=== PATIENT | male | born 1955 | race African-American/Black ===

== ENCOUNTER → 2018-08-05 | Outpatient (CLI) | payer OTHER ==
[~2018-08-05] MED LIST: ADULT LOW DOSE81 MG PO; AVELOX400 MG PO; CABERGOLINE 0.0.5 M1 PO; FISHOIL; LISINOPRIL20 MG PO; PRILOSEC 20 MG20 MG PO; SIMVASTATIN20 MG PO; TESTIM5 GM TD; VITAMIN B-12250 MCG PO
== END ==
LOC: RAD 10:10 → SPEECH 14:38 → RAD 15:14
DX: R13.12 Dysphagia, oropharyngeal phase (principal); R13.19 Other dysphagia; K21.9 Gastro-esophageal reflux disease without esophagitis; J39.2 Other diseases of pharynx; R09.89 Other specified symptoms and signs involving the circulatory and respiratory systems; R49.0 Dysphonia; R05 Cough; I10 Essential (primary) hypertension